=== PATIENT | female | born 1940 | race Caucasian/White ===

== ENCOUNTER 2019-08-13 12:05 | Emergency (ER) | payer MEDICARE ==
[~2019-08-13] VITALS: Ht 160 cm; Wt 84.0 kg
[~2019-08-13 12:05] MED LIST: CALCIUM + VITA1 EACH PO; CLARITIN10 MG PO; DILTIAZEM 24HR180 M1 PO; ELIQUIS5 MG PO; FISH OIL 1,0001 EAC2 PO; HYDROCHLOROTH12.5 MG PO; HYDROCHLOROTHIA25 GM; IPRAT-ALBUT 0.5-3 ML INH; LISINOPRIL10 MG; LISINOPRIL40 MG PO; MAGOX 400400 MG PO; MULTI VITAMIN1 EACH PO; NORCO 5-325 TA1 EACH PO; VITAMIN D5000 UNIT PO
--- OUTSIDE RECORDS SUMMARY | 2019-08-13 12:08 | XMS ---
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 - 2 Visits in 30 Days CARE PROVIDERS NICHOLAS Huddleston Primary [facility] 08/04/2015-Current LALA PHONE: Unknown Other Current PHONE: Unknown Lidia has no Care Guidelines for this patient. Tali VISIT COUNT (12 MO.) [address] [place] [address] TOTAL 2 NOTE: Visits indicate total known visits. 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
--- NOTE | 2019-08-13 23:24 | EKG ---
[facility] [address] [facility] [place] [address] Signed Normal sinus rhythm Possible Left atrial enlargement Borderline ECG When compared with ECG of 04-AUG-2019 08:28, Sinus rhythm has replaced Atrial fibrillation Vent. rate has decreased BY 112 BPM Non-specific change in ST segment in Inferior leads Nonspecific T wave abnormality has replaced inverted T waves in Inferior leads Nonspecific T wave abnormality no longer evident in Lateral leads Confirmed by ADE BUSTOS MD ([id number]) on 08/13/2019 11:24:12 PM Electronically Signed By: ADE BUSTOS MD 08/13/19 2324 PATIENT NAME: CARMEN DIAS Electrocardiogram DATE OF : 40 PHYSICIAN: ADE BUSTOS MD REPORT #: [id number] REPORT IS CONFIDENTIAL AND NOT TO BE RELEASED WITHOUT AUTHORIZATION
== END 2019-08-13 16:03 | disposition home or self-care (01) ==
LOC: ED 12:05
DX: I10 Essential (primary) hypertension (principal); I48.91 Unspecified atrial fibrillation; J44.9 Chronic obstructive pulmonary disease, unspecified; Z88.5 Allergy status to narcotic agent; Z79.899 Other long term (current) drug therapy
CPT/HCPCS: 93005; 93010; 99283-25

== ENCOUNTER 2020-03-15 18:15 | Observation (INO) | payer MEDICARE, OTHER ==
[~2020-03-15] VITALS: Ht 160 cm; Wt 85.7 kg
[~2020-03-15 18:15] MED LIST changes: +CARTIA XT240 MG PO; +SPIRIVA RESPIMAT4 G1 INH; +TYLENOL EXTRA500 MG PO; +ZESTRIL40 MG PO
--- OUTSIDE RECORDS SUMMARY | 2020-03-15 18:18 | XMS ---
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 Care History Medical/Surgical 08/13/2019 [facility] - Patient is currently established with [facility]. If patient is seen in the ED during business hours. Please contact CHWs at [facility]. Care Recommendation: This patient has had 5 or more Emergency Department visits in the last 12 months.\T\nbsp; Patient requires education on the scope and purpose of the ED as an acute care provider not a Primary Care Provider and should not be utilized for chronic conditions.\T\nbsp; These are guidelines and the provider should exercise clinical judgment when providing care. E.D. VISIT COUNT (12 MO.) 3 [facility] TOTAL 3 NOTE: Visits indicate total known visits. ED/UCC VISIT TRACKING (12 MO.) 03/15/2020 18:15 [facility] TYPE: Emergency COMPLAINT: - FLANK PAIN 08/13/2019 12:05 [facility] TYPE: Emergency COMPLAINT: - ELEVATED BLOOD PRESSURE DIAGNOSES: - Other alf (current) drug therapy - Chronic obstructive pulmonary disease, unspecified - Allergy status to narcotic agent status - Essential (primary) hypertension - Unspecified atrial fibrillation 08/04/2019 08:18 [facility] TYPE: Emergency COMPLAINT: - SOB, RAPID HEART RATE INPATIENT VISIT TRACKING (12 MO.) 08/04/2019 08:19 [facility] TYPE: Observation COMPLAINT: - A-FIB DIAGNOSES: - Mild intermittent asthma, uncomplicated - Unspecified atrial fibrillation - Encounter for immunization - Paroxysmal atrial fibrillation - Essential (primary) hypertension - Other alf (current) drug therapy [id number]
--- NOTE | 2020-03-16 09:02 | CONS ---
[facility] [address] [place], [place] [address] Signed DATE OF CONSULTATION: 03/16/2020 CHIEF COMPLAINT: Left groin pain. HISTORY OF PRESENT ILLNESS: Carmen is a 79-year-old female, who has had a right inguinal hernia repaired in the past. She has also had an appendectomy and initially had a partial hysterectomy. She then had her one ovary removed and later had a 2nd ovary removed. She still lives alone in her house and is able to drive and get around, but her back is causing her quite a bit of trouble. Her 2 daughters live close to her and her son lives out of town. Yesterday, she noticed pain and swelling low in the left groin next to the pubic bone. When the pain would not alejo, she came to the emergency room for evaluation. The ER doctor tried to reduce the hernia without success. CT scan confirmed a left inguinal hernia with a small bowel obstruction. Upon my review, it is more than likely a femoral hernia. Consequently, she was admitted overnight and kept n.p.o. and IV fluids. She has done exceptionally well. She is also a very good historian. 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 PAST SURGICAL HISTORY: Includes a partial hysterectomy followed by an oophorectomy and in a year later, the other ovary was removed. She had an appendectomy and a right inguinal hernia repair by Dr. Kapoor. SOCIAL HISTORY: She does not smoke. She does not drink. She is now a . Her son and daughter are twins and she has another daughter. One daughter is Emiliana Zhou at [phone] and other is Nany Alicea at [phone]. Dr. Claudine Rodriguez is a primary care provider. She prefers the [facility]. She is able to drive short distances and uses a wheeled walker to get around. Dr. Will Lucio is her manager of business/oncologist. Dr. Viv Dotson is her negative assembler. She prefers the [facility]. FAMILY HISTORY: Mom had hypertension and of a brain aneurysm at age 48. Dad was a smoker and had COPD. Brother was a smoker. REVIEW OF SYSTEMS: She had 10 systems reviewed. She said there is no metal in her body. She told me she was exposed to smoke from her dad and her brother. She also was exposed to quite a bit of chlorine in the laundry room apparently when she had the twins and she thinks that Electronically Signed By: VARUN ANDERSON MD 03/16/20 0902 PATIENT NAME: CARMEN DIAS CONSULTATION DATE OF : 40 REPORT #: [id number] PHYSICIAN: VARUN ANDERSON MD PCP: CLAUDINE RODRIGUEZ MD REPORT IS CONFIDENTIAL AND NOT TO BE RELEASED WITHOUT AUTHORIZATION [address] [address] Signed contributed her own COPD. She did review with me the hysterectomy and the previous hernia repair. She is currently being followed by Dr. Lucio for the CLL without any medical treatment currently. She is also headed to [place] next week to have her lumbar spine evaluated. ALLERGIES: Codeine. MEDICATIONS: Eliquis, ipratropium/albuterol, calcium, vitamin D, fish oil, magnesium oxide, multivitamin, Claritin, Spiriva, diltiazem, lisinopril, and Tylenol. PHYSICAL EXAMINATION: VITAL SIGNS: Her blood pressure is 143/79, heart rate 66, respiratory rate 16, temperature is 97.7. She is 94% on room air. She is 5 feet 3 inches, 85 kg. GENERAL: Carmen is a 79-year-old female lying supine in her hospital bed, watching TV. She just finished a breathing treatment a little over 20 minutes ago. LUNGS: Currently, her lungs are clear to auscultation bilaterally. HEART: Regular rate and rhythm without murmur. ABDOMEN: Obese, soft and generally flat and nontender. She has a hard lump on the left side of the pubic bone. It appears that she has a femoral hernia. With gentle pressure, I was able to reduce that. I had her double-check and then I rechecked and we both agreed, it is now reduced. LABORATORY DATA: Her white blood count was 12, hemoglobin 14, neutrophils 44, BUN 17, creatinine 0.78. Liver function tests are negative. Albumin 4.4. Urine showed quite a bit of blood and bacteria. RADIOGRAPHIC STUDIES: A CT scan and pelvis was reviewed along with the report and one could see a few stones in the gallbladder and the diverticulosis along with the small bowel in the left groin leading to probably a bit of dilation to the proximal bowel. ASSESSMENT/PLAN: Carmen is a 79-year-old female, who presents with what looks like an incarcerated left femoral hernia. It is now reduced. She is also on Eliquis and has hematuria and bacteriuria. We are going to start her on some Levaquin and Flagyl for the time being and keep her n.p.o. We are going to have our medical service to see her with recommendations to her Eliquis and her other records. She told me she just had pulmonary function test done and a chest x-ray within the last couple of months here at our hospital. In addition, she follows along with Dr. Verónica Dotson on a fairly regular basis, but was unable to give me much detail. In many cases, we wait 5 full days to operate while patients are off the Eliquis. I explained to her that may be an option Electronically Signed By: VARUN ANDERSON MD 03/16/20 0902 PATIENT NAME: CARMEN DIAS CONSULTATION DATE OF : 40 REPORT #: [id number] PHYSICIAN: VARUN ANDERSON MD PCP: CLAUDINE RODRIGUEZ MD REPORT IS CONFIDENTIAL AND NOT TO BE RELEASED WITHOUT AUTHORIZATION [facility] [address] [place] [id number] Signed for her and it is probably safer. We will go ahead and consult our internists and get the old records and we will proceed from there. MD MEJIA Bell/GEMAL /[id number] cc: MD Varun Alaniz MD Lindsay Frye, DO Claudine Rodriguez MD Copies: WILL LUCIO MD, ANDREW L MD ~ Electronically Signed By: VARUN ANDERSON MD 03/16/20901 PATIENT NAME: CARMEN DIAS CONSULTATION DATE OF : 40 REPORT #: [id number] PHYSICIAN: VARUN ANDERSON MD PCP: CLAUDINE RODRIGUEZ MD REPORT IS CONFIDENTIAL AND NOT TO BE RELEASED WITHOUT AUTHORIZATION
--- NOTE | 2020-03-17 15:55 | EKG ---
[facility] [address] [facility] [place] [address] Signed Sinus rhythm with marked sinus arrhythmia Possible Left atrial enlargement Borderline ECG When compared with ECG of 13-AUG-2019 13:37, Inverted T waves have replaced nonspecific T wave abnormality in Inferior leads Confirmed by JESS AHUJA MD ([id number]) on 03/17/2020 3:54:56 PM Electronically Signed By: JESS AHUJA MD 03/17/20 1555 PATIENT NAME: LARISSACARMEN Electrocardiogram DATE OF : 40 PHYSICIAN: JESS AHUJA MD REPORT #: [id number] REPORT IS CONFIDENTIAL AND NOT TO BE RELEASED WITHOUT AUTHORIZATION
== END 2020-03-16 14:30 | disposition home or self-care (01) ==
LOC: ED 18:15 → MS 21:39
PROVIDERS: ADMIT Colon & Rectal Surgery
DX: K41.30 Unilateral femoral hernia, with obstruction, without gangrene, not specified as recurrent (principal); K56.609 Unspecified intestinal obstruction, unspecified as to partial versus complete obstruction; R82.71 Bacteriuria; R31.9 Hematuria, unspecified; I10 Essential (primary) hypertension; I48.0 Paroxysmal atrial fibrillation; J44.9 Chronic obstructive pulmonary disease, unspecified; Z88.5 Allergy status to narcotic agent; Z79.01 Long term (current) use of anticoagulants; Z79.899 Other long term (current) drug therapy; Z90.49 Acquired absence of other specified parts of digestive tract; Z98.890 Other specified postprocedural states; Z90.712 Acquired absence of cervix with remaining uterus; C91.10 Chronic lymphocytic leukemia of B-cell type not having achieved remission
CPT/HCPCS: 36415; 74177; 80048; 80053; 81001; 83735; 84100; 85025; 93005; 93010; 94640; 94760; 99285-25; C9113; G0378; J0696; J7030; J7121; Q9967; U0002

== ENCOUNTER 2022-06-21 23:36 | Emergency (ER) | payer MEDICARE ==
[~2022-06-21] VITALS: Ht 160 cm; Wt 72.0 kg
[2022-06-21] MEDS ORDERED: HYDROCHLOROTH12.5 M1 PO (23:57)
[2022-06-22] MEDS ORDERED: ONDANSETRON ODT8 MG PO (02:30)
[2022-06-22] MEDS ORDERED: LEVOFLOXACIN500 MG PO (02:30)
[2022-06-22] MEDS ORDERED: HYDROCODON-ACE1 EA10 PO (02:30)
== END 2022-06-22 02:55 | disposition home or self-care (01) ==
LOC: ED 23:36
DX: N13.2 Hydronephrosis with renal and ureteral calculous obstruction (principal); D72.829 Elevated white blood cell count, unspecified; I10 Essential (primary) hypertension; J44.9 Chronic obstructive pulmonary disease, unspecified; I48.91 Unspecified atrial fibrillation; Z87.442 Personal history of urinary calculi; Z88.5 Allergy status to narcotic agent; Z79.899 Other long term (current) drug therapy
CPT/HCPCS: 36415; 74176; 80053; 81001; 83690; 85025; 85610; 85730; 87088; 96365; 96375; 99284-25; A9270; J0696; J1170; J2405; J7040

== ENCOUNTER 2023-11-24 19:29 | Emergency (ER) | payer MEDICARE ==
[~2023-11-24] VITALS: Ht 160 cm; Wt 72.0 kg
[~2023-11-24 19:29] MED LIST changes: +HYDROCHLOROTH12.5 M1 PO; +HYDROCODON-ACE1 EA10 PO; +LEVOFLOXACIN500 MG PO; +ONDANSETRON ODT8 MG PO
[2023-11-24 20:19] LABS: ALBUMIN 3.3 g/dL (3.4-5.0); ALBUMIN/GLOBULIN RATIO 0.94 (1.1-2.4); ANION GAP 15.2 (7-21); BILIRUBIN, TOTAL 0.2 ng/dL (0.2-1.0); CALCIUM 8.5 mg/dL (8.5-10.1); CREATININE, SERUM 0.95 mg/dL (0.55-1.02); POTASSIUM 4.2 mmol/L (3.5-5.1); PROTEIN, TOTAL 6.8 g/dL (6.4-8.2)
[2023-11-24 20:39] LABS: BASOPHILS 0.6 % (0-2); HEMATOCRIT 18.5 % (35.0-50.0); LYMPHOCYTES 51.9 % (24-44); MCH 22.2 (27-36); MCHC 29.4 g/dl (30-36); MCV 75.3 fl (81-99); MONOCYTES 6.4 % (0-12); NEUTROPHILS 39.1 % (39-80); PLATELET COUNT 272 K/uL (140-440); RBC 2.46 M/ul (4.3-5.7)
[2023-11-24 20:42] LABS: INFLUENZA B NAA NEGATIVE (NEGATIVE); RESPIRATORY SYNCYTIAL VIR NAA NEGATIVE (NEGATIVE)
[2023-11-24 20:43] LABS: HEMOGLOBIN 5.5 g/dL (12.0-18.0)
[2023-11-24 22:35] LABS: BILIRUBIN, URINE NEGATIVE (negative); BLOOD/HGB, URINE LARGE (Negative); KETONE, URINE NEGATIVE (Negative); LEUK ESTERASE, URINE SMALL (negative); NITRITE, URINE POSITIVE (negative)
[2023-11-24 22:48] LABS: BACTERIA, URINE 2+ /hpf (negative); CASTS, URINE NONE SEEN \\lpf; CRYSTALS, URINE NONE SEEN (0-1+); EPITHELIAL CELLS, URINE SQUAMOUS 1+ /lpf (0-1+)
[2023-11-24 22:49] LABS: COLLECTION TYPE, URINE CLEAN CATCH; RED BLOOD CELLS, URINE 41-50 /hpf (0-5); REFLEX CULTURE, URINE Yes (No)
[2023-11-25 00:01] LABS: ABO A; IS CROSSMATCH COMPATIBLE; RH NEGATIVE
[2023-11-25 00:02] LABS: ABO A; RH NEGATIVE
[2023-11-25 00:48] LABS: IS CROSSMATCH COMPATIBLE
[2023-11-25 06:48] LABS: BASOPHILS 0.4 % (0-2); EOSINOPHILS 1.6 % (0-6); HEMATOCRIT 26.9 % (35.0-50.0); HEMOGLOBIN 8.5 g/dL (12.0-18.0); LYMPHOCYTES 45.2 % (24-44); MCH 24.1 (27-36); MCHC 31.4 g/dl (30-36); MCV 76.9 fl (81-99); NEUTROPHILS 45.8 % (39-80); PLATELET COUNT 250 K/uL (140-440); RDW 21.6 (10.5-15.0)
[2023-11-25 07:10] VITALS: BP 147/85
--- NOTE | 2023-11-25 21:15 | EKG ---
[facility] [address] [facility] [place] [address] Signed Normal sinus rhythm Nonspecific ST and T wave abnormality Abnormal ECG When compared with ECG of 31-MAR-2020 09:29, No significant change was found Confirmed by GEORGE PEREZ MD ([id number]) on 11/25/2023 9:15:05 PM Electronically Signed By: GEORGE PEREZ 11/25/23 2115 PATIENT NAME: LARISSACARMEN PALOMO Electrocardiogram DATE OF : 40 PHYSICIAN: GEORGE PEREZ REPORT #: [id number] REPORT IS CONFIDENTIAL AND NOT TO BE RELEASED WITHOUT AUTHORIZATION
[2023-11-29 09:05] LABS: ANTIBODY SCREEN NEGATIVE
[2023-11-29 09:07] LABS: RBC, LEUKOREDUCED 20212308890100W; RBC, LEUKOREDUCED 20212316512000R
== END 2023-11-25 08:33 | disposition home or self-care (01) ==
LOC: ED 19:29
PROVIDERS: Family Medicine
DX: D64.9 Anemia, unspecified (principal); C91.10 Chronic lymphocytic leukemia of B-cell type not having achieved remission; I48.91 Unspecified atrial fibrillation; Z79.01 Long term (current) use of anticoagulants; J44.9 Chronic obstructive pulmonary disease, unspecified; I10 Essential (primary) hypertension; Z88.5 Allergy status to narcotic agent; Z79.899 Other long term (current) drug therapy; Z11.52 Encounter for screening for COVID-19
CPT/HCPCS: 36415; 36430; 71045; 74177; 80053; 81001; 83880; 84484; 85025; 85060; 85379; 86850; 86900; 86901; 86922; 87088; 87502; 93005; 93010; 94640; 99285-25; J1940; Q9967; U0002

== ENCOUNTER 2023-12-26 22:38 | Emergency (ER) | payer MEDICARE ==
[~2023-12-26] VITALS: Ht 160 cm; Wt 71.7 kg
[2023-12-26] MEDS ORDERED: KETOROLAC TROMETHAMINE 30 MG/ML VIAL IM ONE (23:00)
[2023-12-26] MEDS ORDERED: LIDOCAINE HCL 4% 1 EACH PATCH TD ONE (23:15)
[2023-12-26] MEDS ORDERED: LIDOCAINE1 EACH TOP (23:36)
[2023-12-26 23:54] VITALS: BP 132/73
[2023-12-27] MEDS ORDERED: LIDOCAINE PATCH REMOVAL 1 EA TD SCH (21:00)
== END 2023-12-26 23:55 | disposition home or self-care (01) ==
LOC: ED 22:38
DX: S29.012A Strain of muscle and tendon of back wall of thorax, initial encounter (principal); X50.1XXA Overexertion from prolonged static or awkward postures, initial encounter; I10 Essential (primary) hypertension; J44.9 Chronic obstructive pulmonary disease, unspecified; I48.91 Unspecified atrial fibrillation; Z79.01 Long term (current) use of anticoagulants; Z88.5 Allergy status to narcotic agent; Z79.899 Other long term (current) drug therapy
CPT/HCPCS: 71045; 96372; 99283-25; A9270; J1885

== ENCOUNTER 2024-07-28 10:26 | Emergency (ER) | payer MEDICARE ==
[~2024-07-28] VITALS: Ht 160 cm; Wt 80.6 kg
[~2024-07-28 10:26] MED LIST changes: +ALDACTONE25 MG PO; +IRON325 M1 PO; +LIDOCAINE1 EACH TOP; +VENTOLIN HFA18 GM INH
[2024-07-28] MEDS ORDERED: FAMOTIDINE40 MG PO (10:37)
[2024-07-28] MEDS ORDERED: SPIRONOLACTONE50 MG PO (10:37)
[2024-07-28] MEDS ORDERED: ATENOLOL25 MG PO (10:38)
[2024-07-28] MEDS ORDERED: VENTOLIN HFA18 GM INH ×2 (10:38)
[2024-07-28] MEDS ORDERED: ALBUTEROL2.5 MG/3 M INH (10:39)
[2024-07-28 11:02] LABS: BASOPHILS 0.6 % (0-2); EOSINOPHILS 6.2 % (0-6); HEMATOCRIT 38.8 % (35.0-50.0); HEMOGLOBIN 12.5 g/dL (12.0-18.0); LYMPHOCYTES 52.7 % (24-44); MCH 28.1 (27-36); MCHC 32.2 g/dl (30-36); MCV 87.1 fl (81-99); MONOCYTES 4.4 % (0-12); NEUTROPHILS 36.1 % (39-80); PLATELET COUNT 189 K/uL (140-440); RBC 4.46 M/ul (4.3-5.7); RDW 18.6 (10.5-15.0)
[2024-07-28 11:24] LABS: ALBUMIN 3.5 g/dL (3.4-5.0); ALBUMIN/GLOBULIN RATIO 1.21 (1.1-2.4); ANION GAP 12.9 (7-21); BILIRUBIN, TOTAL 0.4 ng/dL (0.2-1.0); BUN/CREATININE RATIO 17.7 (6.0-28.6); CALCIUM 9.2 mg/dL (8.5-10.1); CREATININE, SERUM 0.96 mg/dL (0.55-1.02); POTASSIUM 3.9 mmol/L (3.5-5.1); PROTEIN, TOTAL 6.4 g/dL (6.4-8.2)
--- NOTE | 2024-07-28 14:02 | EKG ---
[facility] [address] [facility] [place] [address] Signed Sinus bradycardia with sinus arrhythmia Possible Left atrial enlargement Left axis deviation Nonspecific ST abnormality Abnormal ECG When compared with ECG of 24-NOV-2023 19:43, Nonspecific T wave abnormality no longer evident in Anterior leads Confirmed by Wai Mahoney MD ([id number]) on 07/28/2024 2:02:21 PM Electronically Signed By: WAI MAHONEY MD 07/28/24 1402 PATIENT NAME: LARISSACARMEN Electrocardiogram DATE OF : 40 PHYSICIAN: WAI MAHONEY MD REPORT #: [id number] REPORT IS CONFIDENTIAL AND NOT TO BE RELEASED WITHOUT AUTHORIZATION
[2024-07-28 14:05] VITALS: BP 144/60
== END 2024-07-28 14:04 | disposition home or self-care (01) ==
LOC: ED 10:26
PROVIDERS: Emergency Medicine
DX: R42 Dizziness and giddiness (principal); R00.1 Bradycardia, unspecified; I48.91 Unspecified atrial fibrillation; I10 Essential (primary) hypertension; J44.9 Chronic obstructive pulmonary disease, unspecified; Z87.442 Personal history of urinary calculi; Z88.5 Allergy status to narcotic agent; Z88.1 Allergy status to other antibiotic agents; Z91.09 Other allergy status, other than to drugs and biological substances; Z88.8 Allergy status to other drugs, medicaments and biological substances; Z79.899 Other long term (current) drug therapy
CPT/HCPCS: 36415; 80053; 84484; 85025; 85060; 93005; 93010; 99284

== ENCOUNTER 2025-04-09 04:31 | Emergency (ER) | payer MEDICARE, OTHER ==
[~2025-04-09] VITALS: Ht 160 cm; Wt 73.5 kg
[~2025-04-09 04:31] MED LIST changes: +ALBUTEROL2.5 MG/3 M INH; +ATENOLOL25 MG PO; +FAMOTIDINE40 MG PO; +SPIRONOLACTONE50 MG PO
[2025-04-09] MEDS ORDERED: TRAMADOL HCL 50 MG TAB PO ONE (04:45)
[2025-04-09] MEDS ORDERED: LIDOCAINE HCL 4% 1 EACH PATCH TD ONE (04:45)
[2025-04-09] MEDS ORDERED: KETOROLAC TROMETHAMINE 30 MG/ML VIAL IM ONE (04:45)
[2025-04-09] MEDS ORDERED: TRAMADOL HCL50 MG PO (04:47)
[2025-04-09] MEDS ORDERED: LIDODERM1 EACH TOP (04:47)
[2025-04-09] MEDS ORDERED: CELEBREX200 MG PO (04:47)
[2025-04-09] MEDS ORDERED: TRAMADOL HCL 50 MG HOME.PACK PO ONE (05:00)
[2025-04-09 05:50] VITALS: BP 114/68
== END 2025-04-09 05:50 | disposition home or self-care (01) ==
LOC: ED 04:31
DX: S23.41XA Sprain of ribs, initial encounter (principal); I10 Essential (primary) hypertension; J44.9 Chronic obstructive pulmonary disease, unspecified; I48.91 Unspecified atrial fibrillation; Z88.5 Allergy status to narcotic agent; Z88.8 Allergy status to other drugs, medicaments and biological substances; Z79.899 Other long term (current) drug therapy; X58.XXXA Exposure to other specified factors, initial encounter
CPT/HCPCS: 96372; 99283; A9270; J1885

== ENCOUNTER 2025-10-10 18:04 | Inpatient (IN) | payer MEDICARE, OTHER ==
[~2025-10-10] VITALS: Ht 160 cm; Wt 74.6 kg
[~2025-10-10 18:04] MED LIST changes: +CELEBREX200 MG PO; +LIDODERM1 EACH TOP; +TRAMADOL HCL50 MG PO
[2025-10-10] MEDS ORDERED: ALBUTEROL/IPRATROPIUM 3 ML NEB INH ONE (18:30)
[2025-10-10] MEDS ORDERED: BUDESONIDE 0.5 MG/2 ML VIAL INH ONE (18:30)
[2025-10-10] MEDS ORDERED: ALBUTEROL SULFATE 0.5% 2.5 MG/0.5 ML VIAL INH ONE (18:30)
[2025-10-10 18:44] LABS: BASOPHILS 0.4 % (0.1-1.2); EOSINOPHILS 5.4 % (0.7-5.8); LYMPHOCYTES 36.7 % (19.3-51.7); MCH 30.0 PG (25.6-32.2); MCHC 31.9 g/dL (32.2-35.5); MCV 94.0 fL (79.4-94.8); MONOCYTES 8.4 % (4.7-12.5); NEUTROPHILS 48.9 % (34.0-71.1); RBC 4.14 M/uL (3.93-5.22)
[2025-10-10 19:17] LABS: ALT (SGPT) 25.0 U/L (14-59); AST (SGOT) 23.0 U/L (15-37); GLOMERULAR FILTRATION RATE,EST 69.0 mL/min (>60); PROTEIN, TOTAL 6.3 g/dL (6.4-8.2); UREA NITROGEN 16.0 mg/dL (7-18)
[2025-10-10 19:39] LABS: INFLUENZA B NAA NEGATIVE (NEGATIVE); RESPIRATORY SYNCYTIAL VIR NAA NEGATIVE (NEGATIVE)
[2025-10-10] MEDS ORDERED: ACETAMINOPHEN 325 MG TAB PO PRN (20:45)
[2025-10-10] MEDS ORDERED: levoFLOXacin 500 MG PIGGYBACK IV SCH (20:45)
[2025-10-10] MEDS ORDERED: OSELTAMIVIR PHOSPHATE 75 MG CAP PO SCH (21:00)
[2025-10-10] MEDS ORDERED: ARFORMOTEROL TARTRATE 15 MCG/2 ML VIAL INH SCH (21:34)
[2025-10-10] MEDS ORDERED: BUDESONIDE 0.5 MG/2 ML VIAL INH SCH (21:34)
[2025-10-10] MEDS ORDERED: BUDESONIDE 0.5 MG/2 ML VIAL ONE (21:38)
[2025-10-10] MEDS ORDERED: ALBUTEROL/IPRATROPIUM 3 ML NEB ONE (21:38)
[2025-10-10] MEDS ORDERED: ALBUTEROL SULFATE 0.083% 3 ML VIAL INH PRN (21:45)
[2025-10-10 21:47] VITALS: BP 134/69
--- NOTE | 2025-10-10 21:57 | NUR ---
2130 - pt admitted to room 110, flu A+, COPD exarcebation, will be placed on respiratory isolation. 1L O2, not chronic. Walked to bed and to BR, voided clear yellow urine, back to bed 1PA, unsteady gait and tacheipnia with sob on return, Back to bed, sats at rest 95-98% on 1L. Pt alert and oriented to all. Cooperative, follows instructions RT in room doing [facility] tx. Family at bedside.
--- NOTE | 2025-10-10 21:59 | NUR ---
CARMEN IS CURRENTLY ON A 1L NC. RT IS GOING TO LEAVE HER ON 1L NC DUE TO SEVERITY OF FLU AND PATIENT COMFORT. FIRST SET OF COPD EXACERBATION MEDICATIONS GIVEN. CPT CORNET STARTED. CARMEN'S HOME RESPIRATORY MEDICATIONS ARE: ADVAIR, INCRUSE ELLIPTA, AND ALBUTEROL. SHE DOES NOT WEAR A CPAP OR BIPAP, NOR DOES SHE WEAR OXYGEN.
[2025-10-10 22:08] VITALS: BP 134/69
[2025-10-10 22:10] VITALS: BP 134/69
[2025-10-11] VITALS (10 sets, daily range): BP systolic 100–138; BP diastolic 55–66
[2025-10-11] MEDS ORDERED: ALBUTEROL/IPRATROPIUM 3 ML NEB INH SCH
--- NOTE | 2025-10-11 02:12 | NUR ---
Scheduled medication admin per order. Vital signs taken at this time, sp02 97% on 1L oxygen per nc, respirations non labored at rest. Patient up to void, 200ml concentrated urine noted. Patient encouraged to drink more water, pt receptive. Patient denies further needs, bed alarm intact, call light within reach.
[2025-10-11 05:34] LABS: BASOPHILS 0 % (0.1-1.2); EOSINOPHILS 0 % (0.7-5.8); LYMPHOCYTES 26.6 % (19.3-51.7); MCH 30.5 PG (25.6-32.2); MCHC 32.1 g/dL (32.2-35.5); MCV 94.9 fL (79.4-94.8); MONOCYTES 1.8 % (4.7-12.5); NEUTROPHILS 70.9 % (34.0-71.1); RBC 4.13 M/uL (3.93-5.22)
[2025-10-11 05:59] LABS: ALT (SGPT) 24.0 U/L (14-59); AST (SGOT) 19.0 U/L (15-37); GLOMERULAR FILTRATION RATE,EST 56.0 mL/min (>60); PHOSPHORUS, INORGANIC 3.4 mg/dL (2.5-4.9); PROTEIN, TOTAL 6.4 g/dL (6.4-8.2); UREA NITROGEN 17.0 mg/dL (7-18)
--- NOTE | 2025-10-11 07:39 | NUR ---
REVEIVED VERBAL REPORT FROM DONITA LOWE. PATIENT AWAKE AND ALERT SITTING UP IN BED. RT IN ROOM PATIENT RECEIVING BREATHING TREATMENT. PATIENT DENIES NEEDS AT THIS TIME. CALL LIGHT IN REACH.
[2025-10-11] MEDS ORDERED: FLUTICASONE-SA1 EAC4 INH (07:59)
[2025-10-11] MEDS ORDERED: INCRUSE ELLI62.5 MCG INH (08:01)
--- NOTE | 2025-10-11 10:00 | NUR ---
INTO SEE PATIENT. PERSONAL HEALTH INFORMATION REVIEWED. PATIENT LIVES ALONE. DAUGHTERS AND SON THAT LIVE CLOSE. 3 STEPS INTO THE HOME. USES A WALKER AT BASELINE. DRIVES ONLY TO GET HER MAIL. DOES NOT USE OXYGEN OR CPAP. DENIES ANY DIFFCULTY PAYING UTLITIES OR OBTAINING FOOD. GRANDDAUGHTER TO PICK HER UP WHEN MEDICALLY CLEARED FOR D/C.
--- NOTE | 2025-10-11 10:19 | NUR ---
SCHEDULED MEDICATIONS GIVEN PER EMAR. DR DICKSON AT BEDSIDE. ASSESSMENT COMPLETED. VS AND I&O'S OBTAINED AND DOCUMENTED. PATIENT DENIES PAIN AT THIS TIME. NO NEEDS AT THIS TIME. CALL LIGHT IN REACH.
[2025-10-11] MEDS ORDERED: ACETAMINOPHEN 325 MG TAB PO PRN (10:45)
[2025-10-11] MEDS ORDERED: BENZONATATE 100 MG CAP PO PRN (11:00)
[2025-10-11] MEDS ORDERED: guaiFENesin 600 MG TABCR PO PRN (11:00)
[2025-10-11] MEDS ORDERED: PHARMACY RENAL DOSE ADJUSTMENT 1 DOSE MISC PO SCH (12:00)
--- NOTE | 2025-10-11 12:00 | NUR ---
PATIENT LUNCH TRAY SET UP WHILE PATIENT IS UP IN RECLINER WITH FEEL ELEVATED. FRESH WATER GIVEN. PATINET DENIES PAIN OR NEEDS AT THIS TIME. CALL LIGHT IN REACH.
--- NOTE | 2025-10-11 13:19 | NUR ---
UR CLINICAL REVIEW: 2 MN FOR VERSALUS- PER [facility] TECH MEET INPT FOR INFLUENZA A/COPD WITH NEED FOR SUPPLEMENTAL OXYGEN, SERIAL LABS AND STEROIDS MEDICARE INPT 10/11/25 @ 1035 ORDER MATCHES REG NO AUTH REQUIRED PER MEDICARE GUIDELINES DISCHARGE TO HOME WHEN LUIS QUESADA REVIEW 10/12/25
--- NOTE | 2025-10-11 14:51 | NUR ---
IN TO DO VITALS AND I&O'S, DONE AND CHARTED. PATIENT UP FROM CHAIR TO BATHROOM AND BACK TO CHAIR, SBA. CALL LIGHT IN REACH. NO FURTHER NEEDS AT THIS TIME.
--- NOTE | 2025-10-11 14:56 | NUR ---
medications reconciled using pharmacy records and patient interview
--- NOTE | 2025-10-11 16:11 | NUR ---
VERBAL REPORT PROVIDED TO DONITA JOHANSEN.
--- NOTE | 2025-10-11 18:09 | NUR ---
PATIENT UP TO BATHROOM AND THEN TO BED, SBA. VITALS AND I&O'S DONE AND CHARTED. CALL LIGHT IN REACH. NO FURTHER NEEDS AT THIS TIME.
--- NOTE | 2025-10-11 18:38 | NUR ---
FOCUSED ASSESSMENT COMPLETED AND DOCUMENTED. PATIENT RESTING IN BED AWAKE AND ALERT WATCHING TV. PATIENT IS CURRENTLY ON RA SATURATING AT 97-98%, RR REGULAR, EVEN AND UNLABORED. COUGH HAS GOTTEN BETTER PER PATIENT STATEMENT. PATIENT DENIES NEEDS AT THIS TIME. CALL LIGHT IN REACH.
--- NOTE | 2025-10-11 19:47 | NUR ---
RECEIVED REPORT FROM DONITA ROBLES. PT LAYING IN BED WATCHING TV. REPORTS NO NEEDS AT THIS TIME, CALL LIGHT WITHIN REACH. WHITEBOARD UPDATED.
[2025-10-11] MEDS ORDERED: IPRATROPIUM BROMIDE 2.5 ML VIAL INH SCH (20:00)
--- NOTE | 2025-10-11 20:55 | NUR ---
ORDERED MED GIVEN, PT REPORTS NO OTHER NEEDS AT THIS TIME, CALL LIGHT WITHIN REACH, PT READJUSTED IN BED. ASSESSMENT COMPLETED.
[2025-10-11] MEDS ORDERED: OSELTAMIVIR PHOSPHATE 30 MG CAP PO SCH (21:00)
--- NOTE | 2025-10-11 21:05 | NUR ---
Pt used call light, On room air, up to BR, voided clear yellow urine. slightly unsteady gait but much more improved than on admit. Does own HS and arielle care. Back to bed. No c/o pain, tele#[address], tachy on return 98HR, 72 once she repositioned in bed, sats WNL.
--- NOTE | 2025-10-11 23:10 | NUR ---
POWER PROJECT MANAGER AT BEDSIDE CHANGING PTS TELE BATTERY, NO OTHER NEEDS AT THIS TIME, CALL LIGHT WITHIN REACH.
[2025-10-12] VITALS (7 sets, daily range): BP systolic 105–155; BP diastolic 54–80
--- NOTE | 2025-10-12 01:10 | NUR ---
PT LAYING IN BED, EYES CLOSED, UNLABORED BREATHING. CALL LIGHT WITHIN REACH. NO NEEDS AT THIS TIME.
--- NOTE | 2025-10-12 02:17 | NUR ---
Pt awake, quiet, room air, Up to BR, voided small amount clear yellow urine. Tachychardic and tacheipneic on return, see VS flow sheet. Once in bed she is calmer and pulse and resp are at normal. Tele#[address] SR w SVPB's. Denies c/o CP. Pleasant and cooperative. Continues to have moist cough
--- NOTE | 2025-10-12 04:30 | NUR ---
PT LAYING IN BED, EYES CLOSED, UNLABORED BREATHING. CALL LIGHT WITHIN REACH.
[2025-10-12 05:37] LABS: BASOPHILS 0 % (0.1-1.2); EOSINOPHILS 0.1 % (0.7-5.8); LYMPHOCYTES 24.7 % (19.3-51.7); MCH 30.5 PG (25.6-32.2); MCHC 32.4 g/dL (32.2-35.5); MCV 94.3 fL (79.4-94.8); MONOCYTES 4.8 % (4.7-12.5); NEUTROPHILS 70.1 % (34.0-71.1); RBC 4.19 M/uL (3.93-5.22)
--- NOTE | 2025-10-12 05:43 | NUR ---
VS TAKEN, I&OS DOCUMENTED, PT REPORTS NO NEEDS AT THIS TIME, PT STILL HAS OCCASIONAL COUGH, REFUSES TESSALON PEARLS. TELE AND CPOX ON PER ORDER, CALL LIGHT WITHIN REACH, LIGHTS OFF.
[2025-10-12 06:06] LABS: ALT (SGPT) 25.0 U/L (14-59); AST (SGOT) 21.0 U/L (15-37); GLOMERULAR FILTRATION RATE,EST 72.0 mL/min (>60); PHOSPHORUS, INORGANIC 3.8 mg/dL (2.5-4.9); PROTEIN, TOTAL 6.1 g/dL (6.4-8.2); UREA NITROGEN 25.0 mg/dL (7-18)
--- NOTE | 2025-10-12 07:34 | NUR ---
JIM REPORT RECIEVED FROM DONITA FITZGERALD. PT LAYING IN BED AWAKE AND ALERT AT THIS TIME.PT HAS NO ACTE EVENTS DURING THE NIGHT AND DENIES ANY CURRENT NEEDS WITH CALL LIGHT IN REACH IF NEEDED.
[2025-10-12] MEDS ORDERED: predniSONE 20 MG TAB PO SCH (09:00)
[2025-10-12] MEDS ORDERED: ENOXAPARIN SODIUM 40 MG/0.4 ML SYR SUB-Q SCH (09:00)
--- NOTE | 2025-10-12 09:00 | NUR ---
PT SITTIGN UP IN BED AT THIS TIME PT DENEIS ANY CURRENT NEEDS CALL LIGHT IN REACH.
--- NOTE | 2025-10-12 09:05 | NUR ---
HOURLY ROUNDING PATIENT SITTING UP IN BED, WARM TOWEL GIVEN FOR AM CARE. BOARD HAS BEEN UPDATED AND CALL LIGHT HAS BEEN PLACED WITHIN REACH
[2025-10-12] MEDS ORDERED: MUCINEX600 MG PO (09:52)
[2025-10-12] MEDS ORDERED: PREDNISONE20 MG PO (09:53)
[2025-10-12] MEDS ORDERED: TAMIFLU75 MG PO (09:54)
--- NOTE | 2025-10-12 10:00 | NUR ---
PT SITTIGN UP IN BED WATCHING TV PT STATES SHE HAS NO NEEDS AND WILL CALL IF THEY DO, CALL LIGHT IN REACH AT THIS TIME.
--- NOTE | 2025-10-12 10:05 | NUR ---
ALERT AND ORIENTED IN BED. STATES SHE IS PLANNING ON GOING HOME TODAY AND SHE HAS NO CM NEEDS.
--- NOTE | 2025-10-12 11:00 | NUR ---
PT GIVEN VERBAL TEACHING AND WRITTEN DC INFORMATION, PT DENIES ANY NEEDS AND VERBALIZED UNDERSTANDING OF DC INSTRUCTIONS, PT IS WAITING FOR FAMILY TO COME GET THEM AND HAS CALL LIGHT IN REACH.
== END 2025-10-12 11:40 | disposition home or self-care (01) | DRG 193 ==
LOC: ED 18:04 → MS 18:06
PROVIDERS: Family Medicine; ADMIT Family Medicine; ATTEND Family Medicine
DX: J10.1 Influenza due to other identified influenza virus with other respiratory manifestations (principal); J96.01 Acute respiratory failure with hypoxia; J44.1 Chronic obstructive pulmonary disease with (acute) exacerbation; J44.0 Chronic obstructive pulmonary disease with (acute) lower respiratory infection; I10 Essential (primary) hypertension; I48.91 Unspecified atrial fibrillation; Z77.22 Contact with and (suspected) exposure to environmental tobacco smoke (acute) (chronic); R53.1 Weakness; Z87.442 Personal history of urinary calculi; Z90.710 Acquired absence of both cervix and uterus; Z90.49 Acquired absence of other specified parts of digestive tract; Z87.19 Personal history of other diseases of the digestive system; Z88.5 Allergy status to narcotic agent; Z88.1 Allergy status to other antibiotic agents; Z88.8 Allergy status to other drugs, medicaments and biological substances; Z79.899 Other long term (current) drug therapy; Z79.51 Long term (current) use of inhaled steroids
CPT/HCPCS: 36415; 71045; 80053; 82803; 83735; 83880; 84100; 85025; 87502; 94640; 94667; 94668; 94760; 94762; 94799; 96365; 96374; 96375; 97161; 97165; 99285-25; G0378; J1650; J1956; J2919; J7512; J7605; U0002